=== PATIENT | female | born 1990 | race Caucasian/White ===

== ENCOUNTER 2016-09-16 11:48 | Emergency (ER) | payer OTHER ==
--- NOTE | 2016-09-16 12:10 | ED PDOC ---
Arrival/HPI - General Historian: Patient, Partner - History of Present Illness Time/Duration: < week Symptom Onset: Gradual Symptom Course: Unchanged Quality: Aching <Karson Rios - Last Filed: 09/16/16 16:19> <Homero Chan - Last Filed: 09/16/16 18:13> - General Chief Complaint: Abdominal Pain Time Seen by Provider: 09/16/16 12:08 - History of Present Illness Narrative History of Present Illness (Text): 09/16/16 12:28 26yo F with no significant Past medical history here for evaluation of abdominal pain and nausea. Patient reports a three day history of lower abdominal pain, described as dull, with associated nausea, no vomiting. She states that she is . Has had two previous pregnancies ( births) , one child living (7yrs), one soon after . She states that she had similar symptoms in the past when she was . She denies any Diarrhea. No Chest pain, No SOB. No Nausea, Vomiting, diarrhea. No Headaches. She denies any urinary symptoms. Does report some mild non-odorus, clear vaginal discharge. Denies any vaginal bleeding. She also states that her appetite has decreased over the same time frame. Last Menstrual Period: August 04 PMHx: None PSHx: x2 Social Hx: Denies tobacco, Denies ETOH, Denies any illicit drugs NKDA (Karson Rios) Past Medical History - Provider Review Nursing Documentation Reviewed: Yes - Past History Past History: No Previous - Reproductive Menopause: No - Past Medical History Past Medical History: No Previous - Psychiatric Hx Substance Use: No - Surgical History Hx Section: Yes (x2) <Karson Rios - Last Filed: 09/16/16 16:19> - Provider Review Nursing Documentation Reviewed: Yes <Homero Chan - Last Filed: 09/16/16 18:13> Family/Social History - Physician Review Nursing Documentation Reviewed: Yes Family/Social History: No Known Family HX Smoking Status: Never Smoked Hx Alcohol Use: No Hx Substance Use: No <Karson Rios - Last Filed: 09/16/16 16:19> - Physician Review Nursing Documentation Reviewed: Yes Family/Social History: No Known Family HX <Homero Chan - Last Filed: 09/16/16 18:13> Allergies/Home Meds <BlancaKarson - Last Filed: 09/16/16 16:19> <RocioKevinjared - Last Filed: 09/16/16 18:13> Allergies/Adverse Reactions: Allergies No Known Allergies Allergy (Verified 09/16/16 12:03) Review of Systems - Physician Review All systems were reviewed & negative as marked: Yes - Review of Systems Constitutional: absent: Fevers Respiratory: absent: SOB Cardiovascular: absent: Chest Pain, Calf Pain Gastrointestinal: Abdominal Pain, Nausea. absent: Diarrhea, Vomiting Genitourinary Female: Vaginal Discharge. absent: Dysuria, Frequency, Vaginal Bleeding Musculoskeletal: absent: Back Pain Skin: absent: Rash, Abscess Neurological: absent: Dizziness Psychiatric: absent: Anxiety <BlancaKarson - Last Filed: 09/16/16 16:19> Physical Exam Vital Signs Reviewed: Yes Temperature: Afebrile Blood Pressure: Normal Pulse: Regular Respiratory Rate: Normal Appearance: Positive for: Well-Appearing, Comfortable Pain Distress: Mild Mental Status: Positive for: Alert and Oriented X 3 - Systems Exam Head: Present: Atraumatic, Normocephalic Extroacular Muscles: Present: EOMI Mouth: Present: Moist Mucous Membranes Respiratory/Chest: Present: Clear to Auscultation, Accessory Muscle Use Cardiovascular: Present: Normal S1, S2. No: Murmurs Abdomen: Present: Normal Bowel Sounds. No: Tenderness, Distention, Rebound, Guarding Genitourinary/Pelvic Exam: Present: Normal External Genitalia, Vaginal Discharge , Cervical os Closed. No: Vaginal Bleeding, Adenexal Tenderness, Cervical Motion Tendernes Upper Extremity: Present: Normal Inspection Lower Extremity: Present: Normal Inspection. No: Edema, CALF TENDERNESS Neurological: Present: GCS=15 Skin: Present: Warm, Dry, Normal Color. No: Rashes Psychiatric: Present: Alert, Oriented x 3 <BlancaKarson - Last Filed: 09/16/16 16:19> Medical Decision Making - Lab Interpretations I have reviewed the lab results: Yes (Urinalysis positive) <Karson Rios - Last Filed: 09/16/16 16:19> - Lab Interpretations I have reviewed the lab results: Yes <Homero Chan - Last Filed: 09/16/16 18:13> ED Course and Treatment: 09/16/16 12:42 26yo F here with abdominal pain and nausea in the setting of - CBC/CMP - HCG Quant - Transvaginal US - UA - Pepcid/Zofran - reassess and dispo 09/16/16 13:09 Performed pelvic exam: Verbal consent obtained Female certified retinal angiographer (Mya OCONNELL) present for duration of exam. No adnexal tenderness. Cervical Os closed. No blood. Normal physiologic discharge noted. Patient tolerated procedure well 09/16/16 16:09 Patient reexamined, lab results and US results discussed. Patient to follow up with her OBGyn next week. All questions and concerns addressed. Patient and family understand and agree with plan. UTI- Macrobid prescribed. vitamins prescribed (Karson Rios) 09/16/16 13:23 Patient Seen With Resident: In agreement with resident note which contains more details about the patient. Patient was seen and evaluated with resident. Came up with plan and treatment together. Patient is last menstrual period 08/04/16 and complains of lower abdominal pain. Abdomen is non-tender on exam, pelvic exam preformed by resident and is benign. Patient will obtain CBC beta HCG Urinalysis and trans- vaginal sonogram to rule out ectopic . 09/16/16 18:12 Sono showing IUP; urine showing UTI - will d/c on vitamins and macrobid for UTI. (Homero Chan) - Lab Interpretations Lab Results: 09/16/16 13:20 09/16/16 13:20 Lab Results 09/16/16 13:26: Urine Color Yellow, Urine Appearance Slight-cloudy, Urine pH 6.5 , Ur Specific [place] 1.020, Urine Protein Negative, Urine Glucose (UA) Negative , Urine Ketones Negative, Urine Blood Trace-lysed H, Urine Nitrate Positive H, Urine Bilirubin Negative, Urine Urobilinogen 0.2, Ur Leukocyte Esterase Large H , Urine RBC 0 - 2, Urine WBC 5 - 10, Ur Epithelial Cells Many, Urine Bacteria Mod 09/16/16 13:20: Beta HCG, Quant [id number] H 09/16/16 13:20: Sodium 137, Potassium 3.9, Chloride 99, Carbon Dioxide 23, Anion Gap 19, BUN 9, Creatinine 0.6, Est GFR ( Amer) > 60, Est GFR (Non- Af Amer) > 60, Random Glucose 80, Calcium 10.4, Total Bilirubin 0.7, AST 28, ALT 24, Alkaline Phosphatase 66, Total Protein 9.4 H, Albumin 5.0 H, Globulin 4.5, Albumin/Globulin Ratio 1.1, Lipase 111 09/16/16 13:20: WBC 8.0, RBC 4.48, Hgb 12.9, Hct 37.8, MCV 84.4, MCH 28.8, MCHC 34.1, RDW 13.6, Plt Count 259, MPV 10.4, Gran % 56.9, Lymph % (Auto) 28.9, [place] % (Auto) 10.0 H, Eos % (Auto) 3.7, Baso % (Auto) 0.5, Gran # 4.58, Lymph # 2.3, [place] # 0.8 H, Eos # 0.3, Baso # 0.04 - RAD Interpretation Narrative RAD Interpretations (Text): 09/16/16 16:09 Transvaginal US - normal intrauterine at 6wks 1day. (Karson Rios) Radiology Orders: 09/16/16 12:23 OB TRANSVAGINAL [US] Stat - Medication Orders Current Medication Orders: Discontinued Medications Famotidine (Pepcid) 20 mg IVP STAT STA Stop: 09/16/16 12:41 Last Admin: 09/16/16 13:12 Dose: 20 mg Ceftriaxone Sodium (Rocephin 1 Gram Ivpb) 1 gm in 100 mls @ 200 mls/hr IVPB STAT STA PRN Reason: Protocol Stop: 09/16/16 14:17 Last Admin: 09/16/16 14:22 Dose: 200 mls/hr Ondansetron HCl (Zofran Inj) 4 mg IVP STAT STA Stop: 09/16/16 12:41 Last Admin: 09/16/16 13:10 Dose: 4 mg - PA / GREENHOUSE STAFF / Resident Statement DAVID has reviewed & agrees with the documentation as recorded. DAVID has examined the patient and agrees with the treatment plan. <Karson Rios - Last Filed: 09/16/16 16:19> - PA / GREENHOUSE STAFF / Resident Statement DAVID has reviewed & agrees with the documentation as recorded. DAVID has examined the patient and agrees with the treatment plan. - Scribe Statement The provider has reviewed the documentation as recorded by the Scribe <Homero Chan - Last Filed: 09/16/16 18:13> - Scribe Statement Iman Dominique Provider Scribe Attestation: All medical record entries made by the Scribe were at my direction and personally dictated by me. I have reviewed the chart and agree that the record accurately reflects my personal performance of the history, physical exam, medical decision making, and the department course for this patient. I have also personally directed, reviewed, and agree with the discharge instructions and disposition. (Homero Chan) Disposition/Present on Arrival - Present on Arrival Any Indicators Present on Arrival: No History of DVT/PE: No History of Uncontrolled Diabetes: No Urinary Catheter: No History of Decub. Ulcer: No History Surgical Site Infection Following: None - Disposition Have Diagnosis and Disposition been Completed?: Yes Disposition Time: 16:19 Patient Plan: Discharge <Karson Rios - Last Filed: 09/16/16 16:19> <Homero Chan - Last Filed: 09/16/16 18:13> - Disposition Diagnosis: Abdominal pain, First trimester , UTI (urinary tract infection) Disposition: HOME/ ROUTINE Patient Problems: Current Active Problems Problem Status Onset Abdominal pain Acute First trimester Acute UTI (urinary tract infection) Acute Condition: GOOD Discharge Instructions (ExitCare): Urinary Tract Infection in Women (ED), Abdominal Pain (ED), First Trimester (ED) Print Language: FRISIAN Additional Instructions: 1. Follow up with your OBGyn within 5 days 2. Take vitamins as prescribed 3. Take antibiotics as prescribed to completion 4. Return to the ER with any concerning symptoms Prescriptions: Nitrofurantoin Macrocrystals [Macrobid] 100 mg PO BID #14 cap Vit Calc,Iron,Folic [ Vitamins] 1 each PO DAILY #100 tablet Forms: [employer] (Armenian)
[2016-09-16 13:00] VITALS: TEMP 98.9; O2SAT 98
[2016-09-16 13:24] LABS: BASO # 0.04 K/mm3 (0.0-2.0); BASO % 0.5 % (0.0-3.0); EOS # 0.3 (0.0-0.7); EOS % 3.7 % (1.5-5.0); GRAN # 4.58 (1.4-6.5); GRAN % 56.9 % (50.0-68.0); HEMOGLOBIN 12.9 gm/dL (12.0-16.0); LYMPH # 2.3 (1.2-3.4); LYMPH % 28.9 % (22.0-35.0); MEAN CELL VOLUME 84.4 fL (80.0-105.0); MEAN CORPUSCULAR HEMOGLOBIN 28.8 pg (25.0-35.0); MEAN CORPUSCULAR HGB CONC 34.1 g/dl (31.0-37.0); MEAN PLATELET VOLUME 10.4 fl (7.0-11.0); MONO # 0.8 (0.1-0.6); PLATELET COUNT 259 10^3/uL (120.0-450.0); RBC 4.48 10^6/uL (3.5-6.1); RED CELL DISTRIBUTION WIDTH 13.6 % (11.5-14.5)
[2016-09-16 13:28] VITALS: RESP 18
[2016-09-16 13:36] LABS: ALB/GLOB RATIO 1.1 (1.1-1.8); ALT/SGPT 24 U/L (7-56); AST/SGOT 28 U/L (15-39); BLOOD UREA NITROGEN 9 mg/dL (7-21); CALCIUM 10.4 mg/dL (8.4-10.5); GFR AFRICAN-AMERICAN > 60; GFR NON-AFRICAN AMERICAN > 60; LIPASE 111 U/L (23-300)
[2016-09-16 13:40] LABS: PH,URINE 6.5 (4.7-8.0); URINE BILIRUBIN NEGATIVE (NEGATIVE); URINE BLOOD TRACE-LYSED (NEGATIVE); URINE GLUCOSE (UA) NEGATIVE (NEGATIVE); URINE LEUKOCYTE ESTERASE LARGE Leu/uL (NEGATIVE); URINE NITRATE POSITIVE (NEGATIVE); URINE PROTEIN NEGATIVE mg/dL (<30 mg/dL); URINE UROBILINOGEN 0.2 E.U./dL (<1 E.U./dL)
[2016-09-16 13:42] LABS: URINE APPEARANCE SLIGHT-CLOUDY (CLEAR); URINE COLOR YELLOW (YELLOW)
[2016-09-16] MEDS ORDERED: cefTRIAXone 1 gm 1 GM/100 ML BAG IVPB STA (13:48)
[2016-09-16 13:57] LABS: URINE RBC 0 - 2 /hpf (0-2)
[2016-09-16 13:58] LABS: URINE BACTERIA MOD (NEG); URINE EPITHELIAL CELLS MANY /hpf (0-5)
[2016-09-16 15:11] VITALS: BP 122/69; PULSE 74
--- NOTE | 2016-09-16 15:55 | US ---
PROCEDURE: OB Pelvic Ultrasound HISTORY: abd pain, r/o ectopic COMPARISON: None available. FINDINGS: UTERUS: Gestational sac: Single intrauterine gestation. Heart rate: 122 bpm. age (Ultrasound estimated): 6 weeks 1 day Teresa-gestational hemorrhage: None. Date of delivery (Ultrasound estimated) : 05/11/2017 Uterus measures 7.8 x 5.1 x 5.0 cm. Normal in size and appearance. CERVIX: Long and closed. No cervical abnormality seen. RIGHT OVARY: Measures 2.04 x 2.36 x 2.53 cm. No mass lesion. Normal flow. 1 cm cyst LEFT OVARY: Measures 1.6 x 0.8 x 1.4 cm. No solid mass. Normal flow. FREE FLUID: None. OTHER FINDINGS: None. IMPRESSION: Single viable intrauterine . See comments
== END 2016-09-16 14:10 | disposition home or self-care (01) ==
LOC: EDBD → ED 11:48
DX: O23.41 Unspecified infection of urinary tract in pregnancy, first trimester (principal); Z3A.01 Less than 8 weeks gestation of pregnancy; R10.9 Unspecified abdominal pain
CPT/HCPCS: 76817; 80053; 81001; 83690; 84702; 85025; 87086; 87181; 96365; 96375; 99283; J0696; J2405

== ENCOUNTER 2016-11-02 23:21 | Emergency (ER) | payer OTHER ==
[2016-11-02 23:45] VITALS: RESP 18; TEMP 99; BMI 23.4
[2016-11-02] MEDS ORDERED: Sodium Chloride 0.9% 1,000 ML IV STA (23:49)
--- NOTE | 2016-11-02 23:58 | ED PDOC ---
Arrival/HPI - General Historian: Patient - History of Present Illness Time/Duration: Prior to Arrival Symptom Onset: Sudden <Yesi Schwartz - Last Filed: 11/03/16 02:07> <Homero Chan - Last Filed: 11/03/16 02:12> - General Chief Complaint: Abdominal Pain Time Seen by Provider: 11/02/16 23:33 - History of Present Illness Narrative History of Present Illness (Text): 11/02/16 23:58 26-year-old female who is 13 weeks presents today with lower abdominal pain that started approximately 1 hour prior to arrival. Patient states Lesly received a phone call from her ballistics laboratory gunsmith advising her that recent test performed determined that there was a possibility that her fetus may have cystic fibrosis. Patient states she's been scheduled a genetic appointment for November 22 to discuss the results. Patient denies urinary symptoms. Denies vaginal bleeding or discharge. She describes a slight cramping in the lower abdomen. No chest pain or shortness of breath. No fevers or chills. No other complaints (Yesi Schwartz) Past Medical History - Provider Review Nursing Documentation Reviewed: Yes - Travel History Have you recently traveled outside [place] w/in the past 3 mons?: No - Past History Past History: No Previous - Past Medical History Past Medical History: No Previous - Psychiatric Hx Substance Use: No - Surgical History Hx Section: Yes (x2) <Yesi Schwartz - Last Filed: 11/03/16 02:07> Family/Social History - Physician Review Nursing Documentation Reviewed: Yes Family/Social History: Unknown Family HX Smoking Status: Never Smoked Hx Alcohol Use: No Hx Substance Use: No <Yesi Schwartz - Last Filed: 11/03/16 02:07> Allergies/Home Meds <Yesi Schwartz - Last Filed: 11/03/16 02:07> <Homero Chan - Last Filed: 11/03/16 02:12> Allergies/Adverse Reactions: Allergies No Known Allergies Allergy (Verified 09/16/16 12:03) Review of Systems - Review of Systems Constitutional: absent: Fatigue, Fevers Respiratory: absent: SOB, Cough Cardiovascular: absent: Chest Pain, Palpitations Gastrointestinal: Abdominal Pain. absent: Constipation, Diarrhea, Nausea, Vomiting, Anorexia Genitourinary Female: absent: Dysuria, Frequency, Hematuria, Vaginal Bleeding, Vaginal Discharge Musculoskeletal: absent: Arthralgias, Back Pain, Neck Pain Skin: absent: Rash, Pruritis Neurological: absent: Headache, Dizziness Psychiatric: absent: Anxiety, Depression <Yesi Schwartz Last Filed: 11/03/16 02:07> Physical Exam Vital Signs Reviewed: Yes Temperature: Afebrile Blood Pressure: Normal Pulse: Regular Respiratory Rate: Normal Appearance: Positive for: Well-Appearing, Non-Toxic, Comfortable Pain Distress: None Mental Status: Positive for: Alert and Oriented X 3 - Systems Exam Head: Present: Atraumatic Mouth: Present: Moist Mucous Membranes Neck: Present: Normal Range of Motion Respiratory/Chest: Present: Clear to Auscultation, Good Air Exchange. No: Respiratory Distress, Accessory Muscle Use Cardiovascular: Present: Regular Rate and Rhythm, Normal S1, S2. No: Murmurs Abdomen: Present: Normal Bowel Sounds. No: Tenderness, Distention, Peritoneal Signs, Rebound, Guarding Genitourinary/Pelvic Exam: Present: Normal External Genitalia, Cervical os Closed, Other (chaparoned by sera BALTAZAR). No: Vaginal Discharge, Vaginal Bleeding, Vaginal Lesions, Adenexal Tenderness, Adenexal Mass, Cervical Motion Tendernes, Odor Back: Present: Normal Inspection. No: CVA Tenderness Lower Extremity: No: Edema Neurological: Present: GCS=15, Speech Normal Skin: Present: Warm, Dry, Normal Color. No: Rashes Psychiatric: Present: Alert, Oriented x 3 <Yesi Schwartz - Last Filed: 11/03/16 02:07> Vital Signs Temp Pulse Resp BP Pulse Ox 11/03/16 02:06 81 18 111/96 H 98 11/02/16 23:44 99 F 92 H 18 112/76 99 Medical Decision Making <Yesi Schwartz - Last Filed: 11/03/16 02:07> <Homero Chan - Last Filed: 11/03/16 02:12> ED Course and Treatment: 11/03/16 00:03 Patient is nontoxic well appearing in no distress. Vital signs are stable. CBC: wnl CMP: k; 3.2 Beta hC TYPE AND SCREEN: Urinalysis: wnl Ultrasound: FINDINGS: Fetus: There is a single living intrauterine gestation. There is a heart rate of 152 beats per minute. [place] rump length measures 8.36 cm, 14 weeks 2 days. Early gestational age limits evaluation of anatomy Placenta: Placenta is posterior and grade 0. Amniotic fluid: unremarkable BIOMETRICS BPD: 2.29 cm, 13 weeks 6 days FL: 1.36 cm, 14 weeks 0 days MATERNAL: Uterus: Uterus measures approximately 16.2 x 8 x 13 cm. Adnexa: Neither ovary could be identified. Free fluid: There is no free fluid. IMPRESSION: 14 week 0 day single living intrauterine gestation, estimated date of delivery 05/04/17 potassium given PO Discussed all the results the patient. advised f/u with the press tender short goods within the next 2 days. advised immediate return if symptoms worsen,persist or if new symptoms develop. Impression: threatened Tylenol every 4 hours as needed for pain Increase fluids Followup with the forging die sinker within the next 2 days Return immediately if symptoms worsen persist or if new symptoms develop: High fevers, heavy bleeding, severe abdominal pain, vomiting, diarrhea, dizziness or weakness or any other concerning symptoms develop. Continue vitamins daily. (Yesi Schwartz) - Lab Interpretations Lab Results: 11/03/16 00:05 11/03/16 00:05 Lab Results 11/03/16 00:05: Beta HCG, Quant [id number] H 11/03/16 00:05: Urine Color Yellow, Urine Appearance Clear, Urine pH 6.0, Ur Specific [place] <= 1.005, Urine Protein Negative, Urine Glucose (UA) Negative, Urine Ketones Negative, Urine Blood Negative, Urine Nitrate Negative, Urine Bilirubin Negative, Urine Urobilinogen 0.2, Ur Leukocyte Esterase Negative 11/03/16 00:05: WBC 10.2 D, RBC 3.97, Hgb 11.4 L, Hct 33.8 L, MCV 85.1, MCH 28.7, MCHC 33.7, RDW 13.5, Plt Count 229, MPV 10.8, Gran % 67.2, Lymph % (Auto) 23.7, [place] % (Auto) 5.1, Eos % (Auto) 3.7, Baso % (Auto) 0.3, Gran # 6.84 H, Lymph # 2.4, [place] # 0.5, Eos # 0.4, Baso # 0.03 11/03/16 00:05: Blood Type O POSITIVE, Antibody Screen Negative, BBK History Checked No verified bt 11/03/16 00:05: Sodium 135, Potassium 3.2 L, Chloride 103, Carbon Dioxide 20 L, Anion Gap 15, BUN 9, Creatinine 0.5, Est GFR ( Amer) > 60, Est GFR (Non- Af Amer) > 60, Random Glucose 91, Calcium 9.4, Total Bilirubin 0.2, AST 21, ALT 22, Alkaline Phosphatase 49, Total Protein 7.5, Albumin 4.0, Globulin 3.5, Albumin/Globulin Ratio 1.1, Lipase 138 - RAD Interpretation Radiology Orders: 11/02/16 23:49 AGE [US] Stat - Medication Orders Current Medication Orders: Discontinued Medications Sodium Chloride (Sodium Chloride 0.9%) 1,000 mls @ 999 mls/hr IV .Q1H1M STA Stop: 11/03/16 00:49 Last Admin: 11/02/16 23:50 Dose: 999 mls/hr eMAR Start Stop Document 11/02/16 23:50 [facility] (Rec: 11/03/16 00:38 [facility] [id number] Intravenous Solution Start Date 11/03/16 Start Time 00:38 Potassium Chloride (K-Dur 20 Meq Er Tab) 40 meq PO STAT STA Stop: 11/03/16 01:47 Last Admin: 11/03/16 02:06 Dose: 40 meq - PA / IN SHOP SERVICE TECHNICIAN / Resident Statement / has reviewed & agrees with the documentation as recorded. <Homero Chan - Last Filed: 11/03/16 02:12> Disposition/Present on Arrival - Present on Arrival Any Indicators Present on Arrival: No History of DVT/PE: No History of Uncontrolled Diabetes: No Urinary Catheter: No History of Decub. Ulcer: No History Surgical Site Infection Following: None - Disposition Have Diagnosis and Disposition been Completed?: Yes Disposition Time: 01:46 Patient Plan: Discharge <Yesi Schwartz - Last Filed: 11/03/16 02:07> <Homero Chan - Last Filed: 11/03/16 02:12> - Disposition Diagnosis: Threatened Disposition: HOME/ ROUTINE Patient Problems: Current Active Problems Problem Status Onset Threatened Acute Condition: GOOD Discharge Instructions (ExitCare): Threatened Miscarriage (ED) Print Language: KUWAITI Additional Instructions: Tylenol every 4 hours as needed for pain Increase fluids Followup with the forging die sinker within the next 2 days Return immediately if symptoms worsen persist or if new symptoms develop: High fevers, heavy bleeding, severe abdominal pain, vomiting, diarrhea, dizziness or weakness or any other concerning symptoms develop. Continue vitamins daily. Referrals: Alexei Evangelista MD [Primary Care Provider] - Follow up with primary Ariane Fields MD [Staff Provider] - Follow up with primary Forms: [employer] (Guamanian)
[2016-11-03 00:34] LABS: BASO # 0.03 K/mm3 (0.0-2.0); BASO % 0.3 % (0.0-3.0); EOS # 0.4 (0.0-0.7); EOS % 3.7 % (1.5-5.0); GRAN # 6.84 (1.4-6.5); GRAN % 67.2 % (50.0-68.0); HEMATOCRIT 33.8 % (36.0-48.0); LYMPH # 2.4 (1.2-3.4); LYMPH % 23.7 % (22.0-35.0); MEAN CELL VOLUME 85.1 fl (80.0-105.0); MEAN CORPUSCULAR HEMOGLOBIN 28.7 pg (25.0-35.0); MEAN CORPUSCULAR HGB CONC 33.7 g/dl (31.0-37.0); MEAN PLATELET VOLUME 10.8 fl (7.0-11.0); MONO # 0.5 (0.1-0.6); MONO % 5.1 % (1.0-6.0); RED CELL DISTRIBUTION WIDTH 13.5 % (11.5-14.5); WHITE BLOOD COUNT 10.2 10^3/ul (4.5-11.0)
[2016-11-03 00:39] LABS: URINE BILIRUBIN NEGATIVE (NEGATIVE); URINE BLOOD NEGATIVE (NEGATIVE); URINE GLUCOSE (UA) NEGATIVE (NEGATIVE); URINE KETONE NEGATIVE (NEGATIVE); URINE LEUKOCYTE ESTERASE NEGATIVE Leu/uL (NEGATIVE); URINE PROTEIN NEGATIVE mg/dL (<30 mg/dL); URINE UROBILINOGEN 0.2 E.U./dL (<1 E.U./dL)
[2016-11-03 00:41] LABS: URINE APPEARANCE CLEAR (CLEAR); URINE COLOR YELLOW (YELLOW)
[2016-11-03 00:42] LABS: ALB/GLOB RATIO 1.1 (1.1-1.8); ALKALINE PHOSPHATASE 49 U/L (38-126); ALT/SGPT 22 U/L (7-56); AST/SGOT 21 U/L (14-36); BILIRUBIN,TOTAL 0.2 mg/dL (0.2-1.3); BLOOD UREA NITROGEN 9 mg/dL (7-21); CALCIUM 9.4 mg/dL (8.4-10.5); CARBON DIOXIDE 20 mmol/L (21-33); CHLORIDE 103 mmol/L (98-107); GFR AFRICAN-AMERICAN > 60; GLUCOSE,RANDOM 91 mg/dL (70-110); LIPASE 138 U/L (23-300); POTASSIUM 3.2 mmol/L (3.6-5.0); SODIUM 135 mmol/L (132-148); TOTAL PROTEIN 7.5 g/dL (5.8-8.3)
--- NOTE | 2016-11-03 01:39 | US ---
EXAM: US After First Trimester, Transabdominal EXAM DATE/TIME: 11/02/2016 11:49 PM CLINICAL HISTORY: 26 years old, female; Pain; complicated by abdominal or pelvic pain; Lower; First trimester; Gestational age or lmp: 08/04/2016; TECHNIQUE: Real-time transabdominal obstetrical ultrasound of the maternal pelvis and a second or third trimester with image documentation. COMPARISON: US - OB TRANSVAGINAL 09/16/2016 1:42:40 PM FINDINGS: Fetus: There is a single living intrauterine gestation. There is a heart rate of 152 beats per minute. [place] rump length measures 8.36 cm, 14 weeks 2 days. Early gestational age limits evaluation of anatomy Placenta: Placenta is posterior and grade 0. Amniotic fluid: unremarkable BIOMETRICS BPD: 2.29 cm, 13 weeks 6 days FL: 1.36 cm, 14 weeks 0 days MATERNAL: Uterus: Uterus measures approximately 16.2 x 8 x 13 cm. Adnexa: Neither ovary could be identified. Free fluid: There is no free fluid. IMPRESSION: 14 week 0 day single living intrauterine gestation, estimated date of delivery 05/04/17
[2016-11-03] MEDS ORDERED: Potassium Chloride 20 mEq ER Tab PO STA (01:46)
[2016-11-03 02:07] VITALS: BP 111/96; PULSE 81; O2SAT 98
== END 2016-11-03 02:17 | disposition home or self-care (01) ==
LOC: ED 23:21
DX: O20.0 Threatened abortion (principal); Z3A.14 14 weeks gestation of pregnancy
CPT/HCPCS: 76815; 80053; 81003; 83690; 84702; 85025; 86850; 86900; 87086; 99283; J7040

== ENCOUNTER 2017-01-01 19:50 | Emergency (ER) | payer OTHER ==
--- NOTE | 2017-01-01 19:59 | ED PDOC ---
Arrival/HPI - General Historian: Patient <Rohit Darling - Last Filed: 01/01/17 20:55> <Aditya Alanis - Last Filed: 01/01/17 21:10> - General Time Seen by Provider: 01/01/17 19:59 - History of Present Illness Narrative History of Present Illness (Text): 01/01/17 19:59 26 year old female, no significant pmh, nkda, approx. 19 weeks , nkda, complaining of lt. armpit discomfort x 1 day. Pt. stated that she has left armpit discomfort, no fever or chills, no night sweat, no numbness or tingling, no skin discoloration, no vaginal bleeding or discharge, no urinary symptoms, no other medical or psychological complaints. (Rohit Darling) Past Medical History - Provider Review Nursing Documentation Reviewed: Yes - Past History Past History: No Previous - Past Medical History Past Medical History: No Previous - Psychiatric Hx Substance Use: No - Surgical History Hx Section: Yes (x2) <Rohit Darling - Last Filed: 01/01/17 20:55> Family/Social History - Physician Review Nursing Documentation Reviewed: Yes Family/Social History: Unknown Family HX Smoking Status: Never Smoked Hx Alcohol Use: No Hx Substance Use: No <Rohit Darling - Last Filed: 01/01/17 20:55> Allergies/Home Meds <Rohit Darling - Last Filed: 01/01/17 20:55> <Aditya Alanis - Last Filed: 01/01/17 21:10> Allergies/Adverse Reactions: Allergies No Known Allergies Allergy (Verified 12/21/16 16:51) Review of Systems - Review of Systems Constitutional: absent: Fatigue, Fevers Eyes: absent: Vision Changes ENT: absent: Hearing Changes Respiratory: absent: SOB, Cough Cardiovascular: absent: Chest Pain Gastrointestinal: absent: Abdominal Pain, Nausea, Vomiting Musculoskeletal: absent: Arthralgias, Myalgias Skin: absent: Rash, Pruritis, Skin Lesions, Laceration Neurological: absent: Headache, Dizziness <Rohit Darling - Last Filed: 01/01/17 20:55> Physical Exam - Systems Exam Head: Present: Atraumatic, Normocephalic Pupils: Present: PERRL Extroacular Muscles: Present: EOMI Conjunctiva: Present: Normal Neck: Present: Normal Range of Motion Respiratory/Chest: Present: Clear to Auscultation, Good Air Exchange. No: Respiratory Distress, Accessory Muscle Use Cardiovascular: Present: Regular Rate and Rhythm, Normal S1, S2. No: Murmurs Abdomen: Present: Normal Bowel Sounds. No: Tenderness, Distention, Peritoneal Signs Back: Present: Normal Inspection Upper Extremity: Present: Normal Inspection, Other (Lt. axiallary : there is no tenderness or swelling, no regional lymphenapathy, FROM without limitation, sensation intact, motor 5/5, +radial pulse, capillary refill< 2 seconds, neurovascular intact. ). No: Cyanosis, Edema Lower Extremity: Present: Normal Inspection. No: Edema Neurological: Present: GCS=15, Speech Normal, Motor Func Grossly Intact, Gait Normal, Memory Normal Skin: Present: Warm, Dry, Normal Color. No: Rashes Psychiatric: Present: Alert, Oriented x 3, Normal Insight, Normal Concentration <Rohit Darling - Last Filed: 01/01/17 20:55> Vital Signs Temp Pulse Resp BP Pulse Ox 01/01/17 19:52 98.5 F 88 18 109/64 100 Medical Decision Making <Rohit Darling - Last Filed: 01/01/17 20:55> <Aditya Alanis - Last Filed: 01/01/17 21:10> ED Course and Treatment: 01/01/17 20:51 -I examined the patient, the examination is unremarkable, neurovascular, no ecchymosis. Pt. was happy with my diagnosis, request to see different provider. I discussed with the supervising attending Dr. Up which he examined the patient as well, agreed that there is no emergent testing or labs need to be performed, can be discharged home with outpatient follow up. -Pt. has no vaginal bleeding or discharge, no night sweat, request to be discharged home. -Discharge home with education on follow up with your own pmd and obgyn within 2 days, return to the ER for any new or worsening signs or symptoms. (Rohit Darling) - PA / [employer] MACHINE OPERATOR / Resident Statement / has reviewed & agrees with the documentation as recorded. / has examined the patient and agrees with the treatment plan. <Rohit Darling - Last Filed: 01/01/17 20:55> - PA / [employer]E MACHINE OPERATOR / Resident Statement / has reviewed & agrees with the documentation as recorded. / has examined the patient and agrees with the treatment plan. <Aditya Alanis - Last Filed: 01/01/17 21:10> Disposition/Present on Arrival - Present on Arrival Any Indicators Present on Arrival: No History of DVT/PE: No History of Uncontrolled Diabetes: No Urinary Catheter: No History of Decub. Ulcer: No History Surgical Site Infection Following: None - Disposition Have Diagnosis and Disposition been Completed?: Yes Disposition Time: 20:53 Patient Plan: Discharge <Rohit Darling - Last Filed: 01/01/17 20:55> <Aditya Alanis - Last Filed: 01/01/17 21:10> - Disposition Diagnosis: General medical examination Disposition: HOME/ ROUTINE Condition: GOOD Additional Instructions: -Discharge home with education on follow up with your own pmd and obgyn within 2 days, return to the ER for any new or worsening signs or symptoms. Referrals: PCP,NO [Primary Care Provider] - Follow up with primary Jennifer Verdugo MD [Staff Provider] - Follow up with primary Forms: WORK NOTE
[2017-01-01 20:10] VITALS: BMI 24.5
[2017-01-01 20:46] VITALS: BP 109/64; PULSE 88; RESP 18; TEMP 98.5; O2SAT 100
== END 2017-01-01 21:03 | disposition home or self-care (01) ==
LOC: ED 19:50
DX: Z04.8 Encounter for examination and observation for other specified reasons (principal)

== ENCOUNTER 2017-01-12 10:15 | Emergency (ER) | payer OTHER ==
[2017-01-12 10:16] VITALS: BMI 24.3
--- NOTE | 2017-01-12 11:02 | ED PDOC ---
Arrival/HPI - General Historian: Patient - History of Present Illness Time/Duration: 24 hours Symptom Onset: Gradual Symptom Course: Unchanged Activities at Onset: Rest - General Chief Complaint: Flu-like Symptoms Time Seen by Provider: 01/12/17 10:29 - History of Present Illness Narrative History of Present Illness (Text): Patient is a 26 year old female (23 weeks) with no significant past medical history who presents complaining of malaise x 1 day. Patient stated yesterday she started to feel weak. She denies any fevers, chills, sick contacts, chest pain, SOB, abdominal pain, n/v/d, constipation, or any urinary symptoms. Patient does complain of sneezing and non-productive cough x 1 day. ROS POSITIVES: malaise, non-productive cough, sneezing NEGATIVES: fevers, chills, sick contacts, chest pain, SOB, abdominal pain, n/ v/d, constipation, or any urinary symptoms. PMHx: Denies PSHx: x 2 Allergies: No SocialHx: Denies Tobacco, alcohol, or illicit drug use FamHx: Denies Meds: Antibiotic for UTI prescribed on Sunday. Patient does not know the name. (Dea Everett) Past Medical History - Provider Review Nursing Documentation Reviewed: Yes - Past History Past History: No Previous - Infectious Disease Hx of Infectious Diseases: None - Past Medical History Past Medical History: No Previous - Psychiatric Hx Substance Use: No - Surgical History Hx Section: Yes (x2) - Anesthesia Hx Anesthesia: Yes Hx Anesthesia Reactions: No Hx Malignant Hyperthermia: No Family/Social History - Physician Review Nursing Documentation Reviewed: Yes Family/Social History: No Known Family HX Smoking Status: Never Smoked Hx Alcohol Use: No Hx Substance Use: No Allergies/Home Meds Allergies/Adverse Reactions: Allergies No Known Allergies Allergy (Verified 01/12/17 10:44) Review of Systems - Physician Review All systems were reviewed & negative as marked: Yes (As per HPI) - Review of Systems Respiratory: Cough. absent: SOB, Sputum Cardiovascular: Normal. absent: Chest Pain Gastrointestinal: Normal. absent: Abdominal Pain Physical Exam Vital Signs Reviewed: Yes Temperature: Afebrile Blood Pressure: Normal Pulse: Regular Respiratory Rate: Normal Appearance: Positive for: Well-Appearing, Comfortable Pain Distress: None Mental Status: Positive for: Alert and Oriented X 3 - Systems Exam Head: Present: Atraumatic, Normocephalic Extroacular Muscles: Present: EOMI Conjunctiva: Present: Normal Ears: Present: Normal, NORMAL TM. No: TM Bulging Mouth: Present: Moist Mucous Membranes Pharnyx: Present: Normal. No: ERYTHEMA, EXUDATE Nose (External): Present: Atraumatic Neck: Present: Normal Range of Motion. No: Lymphadenopathy Respiratory/Chest: Present: Clear to Auscultation, Good Air Exchange. No: Respiratory Distress, Accessory Muscle Use, Wheezes, Rales, Rhonchi Cardiovascular: Present: Regular Rate and Rhythm, Normal S1, S2. No: Murmurs Abdomen: Present: Normal Bowel Sounds. No: Tenderness, Distention, Rebound, Guarding Upper Extremity: Present: Normal Inspection Lower Extremity: Present: Normal Inspection Neurological: Present: GCS=15, Speech Normal Skin: Present: Warm, Dry, Normal Color Lymphatic: No: Cervical Adenopathy Psychiatric: Present: Alert, Oriented x 3 Vital Signs Temp Pulse Resp BP Pulse Ox 01/12/17 11:02 98.5 F 79 18 132/71 98 Medical Decision Making Re-evaluation Time: 12:28 Reassessment Condition: Re-examined - Lab Interpretations I have reviewed the lab results: Yes ED Course and Treatment: 26 year old female presents with malaise --UA --Rapid Strep --Reassess and Disposition Reassessment --Rapid Strep: NEGATIVE --Patient stable for discharge' 01/12/17 12:28 (Dea Everett) 01/12/17 14:48 mild body aches, sore throat, rhinorrhea, x 1 day. pt well appearing in nad. no gu, abdominal complaints. suspect viral syndrome. (Julio Ledesma) - Lab Interpretations Lab Results: Lab Results 01/12/17 11:15: Grp A Beta Strep Ag Negative 01/12/17 11:15: Urine Color Yellow, Urine Appearance Clear, Urine pH 6.0, Ur Specific [place] 1.020, Urine Protein Negative, Urine Glucose (UA) Negative, Urine Ketones Negative, Urine Blood Negative, Urine Nitrate Negative, Urine Bilirubin Negative, Urine Urobilinogen 0.2, Ur Leukocyte Esterase Negative, Urine HCG, Qual Positive Disposition/Present on Arrival - Present on Arrival Any Indicators Present on Arrival: No History of DVT/PE: No History of Uncontrolled Diabetes: No Urinary Catheter: No History Surgical Site Infection Following: None - Disposition Have Diagnosis and Disposition been Completed?: Yes Disposition Time: 12:26 Patient Plan: Discharge - Disposition Diagnosis: Common cold Disposition: HOME/ ROUTINE Condition: GOOD Discharge Instructions (ExitCare): Cold Symptoms (ED) Additional Instructions: Please follow up with primary medical physician. If symptoms worsen, please return to ED. Referrals: PCP,NO [Primary Care Provider] - Follow up with primary Forms: [facility] ([place]ic)
[2017-01-12 11:03] VITALS: BP 132/71; PULSE 79; RESP 18; O2SAT 98
[2017-01-12 11:39] LABS: URINE BILIRUBIN NEGATIVE (NEGATIVE); URINE BLOOD NEGATIVE (NEGATIVE); URINE GLUCOSE (UA) NEGATIVE (NEGATIVE); URINE KETONE NEGATIVE (NEGATIVE); URINE LEUKOCYTE ESTERASE NEGATIVE Leu/uL (NEGATIVE); URINE PROTEIN NEGATIVE mg/dL (<30 mg/dL); URINE UROBILINOGEN 0.2 E.U./dL (<1 E.U./dL)
[2017-01-12 11:40] LABS: URINE APPEARANCE CLEAR (CLEAR); URINE COLOR YELLOW (YELLOW)
[2017-01-12 11:54] VITALS: TEMP 98.5
== END 2017-01-12 12:33 | disposition home or self-care (01) ==
LOC: ED 10:15
DX: J00 Acute nasopharyngitis [common cold] (principal)